=== PATIENT | female | born 1980 | race Caucasian/White ===

== ENCOUNTER 2016-05-18 23:34 | Emergency (ER) | payer OTHER ==
[~2016-05-18] VITALS: Ht 170.2 cm; Wt 87.0 kg
[~2016-05-18 23:34] MED LIST: ATARAX,VISTARIL25 MG PO; AUGMENTIN875 MG PO; MOTRIN800 MG PO; PREDNISONE20 MG PO; ZANTAC300 MG PO
[2016-05-19 00:15] LABS: MCH 30.1 PG (29.0-34.0); MEAN PLAT.VOLUME 11.3 uM^3 (9.5-12.4); PLATELET COUNT 159 K/uL (156-360); RBC DIS.WIDTH-CV 12.6 % (11.8-14.6); RBC DIS.WIDTH-SD 38.8 % (39-53); RED BLOOD COUNT 4.65 M/uL (3.80-5.20); WHITE BLOOD COUNT 8.5 K/uL (4.1-10.2)
[2016-05-19 00:27] LABS: CHLORIDE 105 mEq/L (99-109); POTASSIUM 2.9 mEq/L (3.7-5.4); SODIUM 139 mEq/L (136-147)
[2016-05-19 00:29] LABS: GLUCOSE 119 mg/dL (70-99)
[2016-05-19 00:30] LABS: ANION GAP 13 MEQ/L (2-14)
[2016-05-19 00:32] LABS: D-DIMER ELISA 0.53 mg/L FEU (< 0.57)
[2016-05-19 00:33] LABS: GFR ESTIMATE (CALCULATED) > 59 mL/min/
[2016-05-19 00:34] LABS: UREA NITROGEN (BUN) 11 mg/dL (9-23)
[2016-05-19 00:37] LABS: TROP-I INTERPRETATION NEGATIVE; TROPONIN-I < 0.01 ng/mL (0.0-0.30)
[2016-05-19] MEDS ORDERED: LEVAQUIN500 MG PO (04:00)
[2016-05-19 04:06] VITALS: BP 118/80
== END 2016-05-19 04:07 | disposition home or self-care (01) ==
LOC: EME 23:34
DX: J44.9 Chronic obstructive pulmonary disease, unspecified (principal); R11.0 Nausea; F17.200 Nicotine dependence, unspecified, uncomplicated; Z71.6 Tobacco abuse counseling
CPT/HCPCS: 71020; 71275; 80048; 84484; 85027; 85379; 93005; 94640; 99281; 99285; J2405

== ENCOUNTER 2016-07-09 09:08 | Emergency (ER) | payer OTHER ==
[~2016-07-09] VITALS: Ht 170.2 cm; Wt 93.9 kg
[~2016-07-09 09:08] MED LIST changes: +LEVAQUIN500 MG PO
[2016-07-09 09:57] LABS: BASOPHIL COUNT 0.1 K/uL (0-0.1); EOSINOPHIL (%) 2.5 % (0-5); EOSINOPHIL COUNT 0.3 K/uL (0-0.3); HEMATOCRIT 40.9 % (36.0-46.0); IMMATURE GRANULOCYTE (%) 0.3 % (0.0-0.7); LYMPHOCYTE COUNT 3.7 K/uL (1.0-2.8); MCH 29.6 PG (29.0-34.0); MCHC 33.3 G/DL (30.0-36.0); MCV 88.9 FL (83-99); MEAN PLAT.VOLUME 10.2 uM^3 (9.5-12.4); MONOCYTE (%) 6.4 % (3-12); MONOCYTE COUNT 0.8 K/uL (0-0.8); NEUTROPHIL (%) 59.1 % (45-76); PLATELET COUNT 256 K/uL (156-360); RBC DIS.WIDTH-CV 12.3 % (11.8-14.6); RBC DIS.WIDTH-SD 40.3 % (39-53); WHITE BLOOD COUNT 11.8 K/uL (4.1-10.2)
[2016-07-09 10:07] LABS: CHLORIDE 106 mEq/L (99-109); POTASSIUM 3.3 mEq/L (3.7-5.4); SODIUM 141 mEq/L (136-147)
[2016-07-09 10:10] LABS: GLUCOSE 115 mg/dL (70-99)
[2016-07-09 10:11] LABS: ANION GAP 12 MEQ/L (2-14)
[2016-07-09 10:12] LABS: TOTAL BILIRUBIN 0.2 mg/dL (0.0-1.0)
[2016-07-09 10:13] LABS: ALKALINE PHOSPHATASE 90 IU/L (3-129); GFR ESTIMATE (CALCULATED) > 59 mL/min/
[2016-07-09 10:14] LABS: UREA NITROGEN (BUN) 9 mg/dL (9-23)
[2016-07-09 10:17] LABS: LIPASE 22 U/L (1.0-51.0)
[2016-07-09 10:56] LABS: ADD MIUA? NO; BILIRUBIN NEGATIVE; BLOOD NEGATIVE; COLOR STRAW ((YELLOW)); GLUCOSE (STRIP) NEGATIVE; KETONES NEGATIVE; LEUKOCYTES NEGATIVE; NITRITE NEGATIVE; PROTEIN (STRIP) NEGATIVE; SPECIFIC GRAVITY 1.005 (1.000-1.030); UROBILINOGEN 0.2 MG/DL (0.2-1.0)
[2016-07-09] MEDS ORDERED: PERCOCET 5/31 TABLET PO (12:19)
[2016-07-09 12:37] VITALS: BP 133/93
== END 2016-07-09 12:41 | disposition home or self-care (01) ==
LOC: EME 09:08
PROVIDERS: Emergency Medicine
DX: R10.11 Right upper quadrant pain (principal); F17.200 Nicotine dependence, unspecified, uncomplicated
CPT/HCPCS: 74176; 76705; 80053; 81003; 83690; 85025; 99281; 99284; J2270; J7030

== ENCOUNTER 2016-07-16 16:26 | Emergency (ER) | payer OTHER ==
[~2016-07-16] VITALS: Ht 172.7 cm; Wt 94.2 kg
[~2016-07-16 16:26] MED LIST changes: +PERCOCET 5/31 TABLET PO
[2016-07-16] MEDS ORDERED: ACYCLOVIR800 MG PO (18:29)
[2016-07-16] MEDS ORDERED: PERCOCET 5/31 TABLET PO (19:18)
[2016-07-16 19:21] VITALS: BP 136/92
== END 2016-07-16 19:21 | disposition home or self-care (01) ==
LOC: EME 16:26
DX: B02.9 Zoster without complications (principal); F17.200 Nicotine dependence, unspecified, uncomplicated
CPT/HCPCS: 99281; 99284